=== PATIENT | female | born 1935 | race Caucasian/White ===

== ENCOUNTER 2020-01-31 16:51 | Inpatient (IN) | payer MEDICARE, OTHER ==
[~2020-01-31] VITALS: Ht 154.9 cm; Wt 71.4 kg
[2020-01-31] MEDS ORDERED: ONDANSETRON HCL INJ 2MG/ML 2ML 2 MG/ML VIAL IV PRN ×2 (17:00→21:00)
[2020-01-31 18:40] LABS: BASOPHILS # (AUTO) 0.2 (0.0-0.1); BASOPHILS % 0.8 % (0.0-1.0); EOSINOPHILS # (AUTO) 0.7 (0.0-0.4); EOSINOPHILS % 2.9 % (0.0-6.0); HEMATOCRIT 34.8 % (34.2-44.1); HEMOGLOBIN 10.9 g/dL (12.0-16.0); LYMPHOCYTES # (AUTO) 1.8 (1.0-3.2); LYMPHOCYTES % 7.7 % (18.0-39.1); MEAN CORPUSCULAR HEMOGLOBIN 28.4 pg (28-32); MEAN CORPUSCULAR HGB CONC 31.3 g/dL (31-35); MEAN CORPUSCULAR VOLUME 90.6 fL (81-99); MONOCYTES # (AUTO) 1.5 (0.2-0.8); MONOCYTES % 6.5 % (4.4-11.3); NEUTROPHILS # (AUTO) 18.1 (2.1-6.9); NEUTROPHILS % 76.9 % (38.7-80.0); PLATELET COUNT 417 x10e3/uL (140-360); RED BLOOD COUNT 3.84 x10e6/uL (3.6-5.1); RED CELL DISTRIBUTION WIDTH 17.5 % (11.7-14.4)
[2020-01-31 18:52] LABS: CLARITY,URINE SL CLOUDY (CLEAR); COLOR,URINE YELLOW (YELLOW); KETONES,URINE TRACE (NEGATIVE); LEUKOCYTE ESTERASE ,URINE SMALL (NEGATIVE); NITRITE,URINE NEGATIVE (NEGATIVE); PROTEIN,URINE DIPSTICK >=300 (NEGATIVE); URINE UROBILINOGEN 0.2 mg/dL (0.2 - 1)
[2020-01-31 18:53] LABS: BILIRUBIN,URINE NEGATIVE (NEGATIVE)
[2020-01-31 18:56] LABS: ALBUMIN 3.4 g/dL (3.5-5.0); ALBUMIN/GLOBULIN RATIO 0.9 (0.8-2.0); ANION GAP 20.1 mmol/L (8-16); CREATININE, SERUM 1.76 mg/dL (0.57-1.11); POTASSIUM 4.1 mmol/L (3.5-5.1)
[2020-01-31] MEDS ORDERED: SODIUM CHLORIDE 0.9% 1000ML 1,000 ML IV ONE ×2 (19:00→20:45)
[2020-01-31] MEDS ORDERED: CEFEPIME HCL 1 GM VIAL IV ONE (19:00)
[2020-01-31] MEDS ORDERED: CEFEPIME 1GM/NS 0.9% 50 ML 50 ML IV ONE ×2 (19:07→19:15)
[2020-01-31 19:08] LABS: RBC,URINE >50 /HPF (0-5); WBC,URINE (MAN) 21-50 /HPF (0-5)
[2020-01-31 19:09] LABS: BACTERIA,URINE MANY /HPF; EPITHELIAL CELLS,URINE FEW /LPF; YEAST,URINE MODERATE
[2020-01-31 19:41] LABS: BAND NEUTROPHILS % (MANUAL) 8 %; EOSINOPHILS % (MANUAL) 4 % (0-7); LYMPHOCYTES % (MANUAL) 7 % (19-48); MONOCYTES % (MANUAL) 5 % (3.4-9.0); MYELOCYTES % (MANUAL) 1 % (0-0); NEUTROPHILS % (MANUAL) 75 % (40-74)
[2020-01-31 19:44] LABS: ELLIPTOCYTE, RBC SLIGHT; POLYCHROMASIA FEW; RBC MORPHOLOGY COMMENT ABNORMAL; SCHISTOCYTES RARE
[2020-01-31 19:45] LABS: PLATELET ESTIMATE ADEQUATE; PLATELET MORPHOLOGY COMMENT NORMAL
[2020-01-31] MEDS: MEROPENEM 500MG/ NS 50ML 50 ML IV SCH (20:26)
[2020-01-31] MEDS ORDERED: SODIUM CHLORIDE 0.9% 1000ML 1,000 ML ONE (20:41)
[2020-01-31] MEDS: SODIUM CHLORIDE 0.9% 1000ML 1,000 ML IV SCH (23:00)
[2020-01-31 23:11] VITALS: BP 125/85
[2020-01-31 23:45] VITALS: BP 125/85
[2020-02-01] VITALS (24 sets, daily range): BP systolic 102–149; BP diastolic 39–65
[2020-02-01 05:04] LABS: BASOPHILS # (AUTO) 0.1 (0.0-0.1); BASOPHILS % 0.7 % (0.0-1.0); EOSINOPHILS # (AUTO) 0.6 (0.0-0.4); EOSINOPHILS % 3.1 % (0.0-6.0); HEMOGLOBIN 9.2 g/dL (12.0-16.0); LYMPHOCYTES # (AUTO) 1.4 (1.0-3.2); LYMPHOCYTES % 7.2 % (18.0-39.1); MEAN CORPUSCULAR HEMOGLOBIN 28.8 pg (28-32); MEAN CORPUSCULAR HGB CONC 30.7 g/dL (31-35); MEAN CORPUSCULAR VOLUME 93.8 fL (81-99); MONOCYTES # (AUTO) 1.5 (0.2-0.8); MONOCYTES % 7.9 % (4.4-11.3); NEUTROPHILS # (AUTO) 14.4 (2.1-6.9); NEUTROPHILS % 76.6 % (38.7-80.0); PLATELET COUNT 345 x10e3/uL (140-360); RED CELL DISTRIBUTION WIDTH 17.3 % (11.7-14.4)
[2020-02-01 05:20] LABS: ALBUMIN 2.9 g/dL (3.5-5.0); ANION GAP 20.7 mmol/L (8-16); CALCIUM 9.2 mg/dL (8.4-10.2); CREATININE, SERUM 1.62 mg/dL (0.57-1.11); POTASSIUM 3.7 mmol/L (3.5-5.1)
[2020-02-01] MEDS: SODIUM CHLORIDE 0.9% 1000ML 1,000 ML IV SCH (07:24)
[2020-02-01] MEDS: MEROPENEM 500MG/ NS 50ML 50 ML IV SCH ×2 (07:24→21:51)
[2020-02-01] MEDS ORDERED: LEVETIRACETAM ORAL SOLUTION 500 MG/5 ML SOLN PEG SCH (09:00)
[2020-02-01] MEDS ORDERED: CITRATE OF MAGNESIA 300ML BOTTLE GT ONE (10:30)
[2020-02-01] MEDS ORDERED: MINERAL OIL 132 ML BTL PR ONE (10:30)
[2020-02-01] MEDS ORDERED: HEPARIN SOD (PORCINE) 5,000 UNIT/ML VIAL SC SCH (10:30)
[2020-02-01] MEDS: DOCUSATE SODIUM LIQD 100 MG/10 ML UDC NG SCH ×2 (10:30→16:44)
[2020-02-01 10:56] LABS: INR 1.15; PROTHROMBIN TIME 15.3 seconds (11.9-14.5)
[2020-02-01 10:57] LABS: PARTIAL THROMBOPLASTIN TIME 36.2 seconds (23.8-35.5)
[2020-02-01] MEDS: ALBUTEROL/IPRATROPIUM 3 ML NEB NEB SCH ×2 (11:00→18:40)
[2020-02-01 11:16] LABS: ABG HCO3 18 mmol/L (22-26); ABG PCO2 35 mmHg (35-45); ABG PH 7.32 (7.35-7.45); ABG PO2 97 mmHg (80-105); ABG TCO2 19
[2020-02-01] MEDS ORDERED: MIDAZOLAM HCL 2 MG/2 ML VIAL ONE (11:21)
[2020-02-01] MEDS ORDERED: FENTANYL CITRATE/PF 100MCG/2 ML INJ ONE (11:22)
[2020-02-01] MEDS ORDERED: LIDOCAINE HCL 1% LOCAL INJ 20 ML VIAL ONE (11:23)
[2020-02-01] MEDS ORDERED: SODIUM CHLORIDE 0.9% 250ML 250 ML ONE (11:23)
[2020-02-01] MEDS ORDERED: IOPAMIDOL 300 MG/ML 15ML VIAL IT ONE (11:42)
[2020-02-01] MEDS: LACTATED RINGER'S 1,000 ML INJ SCH ×2 (13:13→21:52)
[2020-02-01] MEDS ORDERED: AMANTADINE50 MG/5 ML (13:17)
[2020-02-01] MEDS ORDERED: VALPROIC A250 MG/5 M PO (13:17)
[2020-02-01] MEDS ORDERED: PHENOBARBITAL64.8 MG NG (13:17)
[2020-02-01] MEDS ORDERED: PHENYTOIN100 MG/4 M (13:17)
[2020-02-01] MEDS ORDERED: ATORVASTATIN CA20 MG PO (13:17)
[2020-02-01] MEDS ORDERED: PHENOBARBITAL 64.8 MG NG SCH (14:00)
[2020-02-01] MEDS: PHENOBARBITAL 30 MG TAB NG SCH ×2 (15:48→21:51)
[2020-02-01] MEDS: LEVETIRACETAM ORAL SOLUTION 500 MG/5 ML SOLN PEG SCH (16:45)
[2020-02-01] MEDS ORDERED: VANCOMYCIN 750MG/NS 150ML IVPB 150 ML IV SCH (17:00)
[2020-02-01] MEDS: ATORVASTATIN 40 MG TAB PO SCH (21:51)
[2020-02-02] VITALS (25 sets, daily range): BP systolic 112–141; BP diastolic 46–69
[2020-02-02] MEDS: LACTATED RINGER'S 1,000 ML INJ SCH (02:30)
[2020-02-02 05:15] LABS: BASOPHILS # (AUTO) 0.1 (0.0-0.1); BASOPHILS % 0.7 % (0.0-1.0); EOSINOPHILS # (AUTO) 0.5 (0.0-0.4); EOSINOPHILS % 3.6 % (0.0-6.0); HEMATOCRIT 24.7 % (34.2-44.1); LYMPHOCYTES # (AUTO) 1.5 (1.0-3.2); MEAN CORPUSCULAR HEMOGLOBIN 28.3 pg (28-32); MEAN CORPUSCULAR HGB CONC 30.4 g/dL (31-35); MEAN CORPUSCULAR VOLUME 93.2 fL (81-99); MONOCYTES # (AUTO) 1.4 (0.2-0.8); MONOCYTES % 9.5 % (4.4-11.3); NEUTROPHILS # (AUTO) 10.3 (2.1-6.9); NEUTROPHILS % 70.5 % (38.7-80.0); PLATELET COUNT 303 x10e3/uL (140-360); RED BLOOD COUNT 2.65 x10e6/uL (3.6-5.1); RED CELL DISTRIBUTION WIDTH 17.5 % (11.7-14.4)
[2020-02-02 05:24] LABS: HEMOGLOBIN 7.5 g/dL (12.0-16.0)
[2020-02-02 05:26] LABS: INR 1.06; PROTHROMBIN TIME 14.3 seconds (11.9-14.5)
[2020-02-02 05:35] LABS: ALBUMIN 2.7 g/dL (3.5-5.0); ALBUMIN/GLOBULIN RATIO 1.1 (0.8-2.0); ANION GAP 17.9 mmol/L (8-16); CREATININE, SERUM 1.59 mg/dL (0.57-1.11); POTASSIUM 3.9 mmol/L (3.5-5.1)
[2020-02-02] MEDS: PHENOBARBITAL 30 MG TAB NG SCH ×3 (06:00→21:58)
[2020-02-02] MEDS: ALBUTEROL/IPRATROPIUM 3 ML NEB NEB SCH ×4 (07:00→19:00)
[2020-02-02] MEDS: LEVETIRACETAM ORAL SOLUTION 500 MG/5 ML SOLN PEG SCH ×2 (08:26→16:41)
[2020-02-02] MEDS: PANTOPRAZOLE SODIUM 40 MG SUSPDR.PKT PO SCH (08:26)
[2020-02-02] MEDS: COLLAGENASE 5 GM TUBE TP SCH (08:26)
[2020-02-02] MEDS: DOCUSATE SODIUM LIQD 100 MG/10 ML UDC NG SCH ×2 (08:26→16:41)
[2020-02-02] MEDS: MEROPENEM 500MG/ NS 50ML 50 ML IV SCH ×2 (08:26→20:53)
[2020-02-02] MEDS: AMANTADINE HCL 50 MG/5 ML SOLUTION NG SCH (09:00)
[2020-02-02] MEDS ORDERED: DAPTOMYCIN 500mg 10ML 400 MG in SODIUM CHLORIDE 0.9% 100 ML IV SCH (13:00)
[2020-02-02] MEDS: ATORVASTATIN 40 MG TAB PO SCH (21:01)
[2020-02-03] VITALS (25 sets, daily range): BP systolic 112–138; BP diastolic 46–70
[2020-02-03] MEDS: ALBUTEROL/IPRATROPIUM 3 ML NEB NEB SCH ×4 (01:00→19:00)
[2020-02-03] MEDS: COLLAGENASE 5 GM TUBE TP SCH (01:39)
[2020-02-03] MEDS: LACTATED RINGER'S 1,000 ML INJ SCH (04:09)
[2020-02-03 05:11] LABS: BASOPHILS # (AUTO) 0.1 (0.0-0.1); BASOPHILS % 0.4 % (0.0-1.0); EOSINOPHILS # (AUTO) 0.4 (0.0-0.4); EOSINOPHILS % 3.2 % (0.0-6.0); HEMOGLOBIN 7.9 g/dL (12.0-16.0); LYMPHOCYTES # (AUTO) 1.2 (1.0-3.2); LYMPHOCYTES % 8.7 % (18.0-39.1); MEAN CORPUSCULAR HEMOGLOBIN 28.6 pg (28-32); MEAN CORPUSCULAR HGB CONC 30.4 g/dL (31-35); MEAN CORPUSCULAR VOLUME 94.2 fL (81-99); MONOCYTES # (AUTO) 1.1 (0.2-0.8); MONOCYTES % 7.8 % (4.4-11.3); NEUTROPHILS # (AUTO) 10.3 (2.1-6.9); NEUTROPHILS % 75.2 % (38.7-80.0); PLATELET COUNT 303 x10e3/uL (140-360); RED BLOOD COUNT 2.76 x10e6/uL (3.6-5.1); RED CELL DISTRIBUTION WIDTH 17.8 % (11.7-14.4)
[2020-02-03 05:33] LABS: ALBUMIN 2.7 g/dL (3.5-5.0); ALBUMIN/GLOBULIN RATIO 1.1 (0.8-2.0); ANION GAP 15.3 mmol/L (8-16); CREATININE, SERUM 1.37 mg/dL (0.57-1.11); POTASSIUM 3.3 mmol/L (3.5-5.1)
[2020-02-03 05:52] LABS: % IRON SATURATION 25 % (15-50); IRON 54 ug/dL (50-170); TOTAL IRON BINDING CAPACITY 213 ug/dL (261-478); TRANSFERRIN 152 mg/dL (180-382)
[2020-02-03] MEDS: PHENOBARBITAL 30 MG TAB NG SCH ×3 (06:20→20:40)
[2020-02-03] MEDS: PANTOPRAZOLE SODIUM 40 MG SUSPDR.PKT PO SCH (08:34)
[2020-02-03] MEDS: MEROPENEM 500MG/ NS 50ML 50 ML IV SCH (08:34)
[2020-02-03] MEDS: LEVETIRACETAM ORAL SOLUTION 500 MG/5 ML SOLN PEG SCH ×2 (08:54→17:00)
[2020-02-03] MEDS: DOCUSATE SODIUM LIQD 100 MG/10 ML UDC NG SCH ×2 (08:54→17:00)
[2020-02-03] MEDS: AMANTADINE HCL 50 MG/5 ML SOLUTION NG SCH (08:54)
[2020-02-03] MEDS ORDERED: POTASSIUM BICARBONATE/CIT AC 20 MEQ TABLET.EFF PO PRN (11:30)
[2020-02-03] MEDS: DEXTROSE 5%/0.9% SOD CHL 1,000 ML IV SCH (12:08)
[2020-02-03] MEDS: LINEZOLID 600 MG/D5W 300ML 300 ML IV SCH (13:44)
[2020-02-03] MEDS: ATORVASTATIN 40 MG TAB PO SCH (20:40)
[2020-02-04] VITALS (24 sets, daily range): BP systolic 107–171; BP diastolic 41–84
[2020-02-04] MEDS: ALBUTEROL/IPRATROPIUM 3 ML NEB NEB SCH ×4 (01:00→19:00)
[2020-02-04] MEDS: LINEZOLID 600 MG/D5W 300ML 300 ML IV SCH ×2 (02:41→11:47)
[2020-02-04 05:39] LABS: BASOPHILS # (AUTO) 0.1 (0.0-0.1); BASOPHILS % 0.4 % (0.0-1.0); EOSINOPHILS # (AUTO) 0.8 (0.0-0.4); EOSINOPHILS % 2.7 % (0.0-6.0); HEMATOCRIT 29.7 % (34.2-44.1); LYMPHOCYTES % 7.1 % (18.0-39.1); MEAN CORPUSCULAR HEMOGLOBIN 28.5 pg (28-32); MEAN CORPUSCULAR HGB CONC 30.3 g/dL (31-35); MONOCYTES # (AUTO) 1.5 (0.2-0.8); MONOCYTES % 5.1 % (4.4-11.3); NEUTROPHILS # (AUTO) 23.7 (2.1-6.9); NEUTROPHILS % 82.7 % (38.7-80.0); PLATELET COUNT 317 x10e3/uL (140-360); RED BLOOD COUNT 3.16 x10e6/uL (3.6-5.1); RED CELL DISTRIBUTION WIDTH 17.8 % (11.7-14.4)
[2020-02-04] MEDS: PHENOBARBITAL 30 MG TAB NG SCH ×3 (05:53→22:00)
[2020-02-04 06:02] LABS: ALBUMIN 1.7 g/dL (3.5-5.0); ALBUMIN/GLOBULIN RATIO 0.5 (0.8-2.0); CALCIUM 8.7 mg/dL (8.4-10.2); CREATININE, SERUM 1.42 mg/dL (0.57-1.11)
[2020-02-04] MEDS: PANTOPRAZOLE SODIUM 40 MG SUSPDR.PKT PO SCH (07:30)
[2020-02-04 08:10] LABS: ANISOCYTOSIS SLIGHT; EOSINOPHILS % (MANUAL) 4 % (0-7); LYMPHOCYTES % (MANUAL) 6 % (19-48); MONOCYTES % (MANUAL) 2 % (3.4-9.0); NEUTROPHILS % (MANUAL) 88 % (40-74); PLATELET ESTIMATE ADEQUATE; RBC MORPHOLOGY COMMENT ABNORMAL
[2020-02-04 08:11] LABS: PLATELET MORPHOLOGY COMMENT NORMAL
[2020-02-04] MEDS: DEXTROSE 5%/0.9% SOD CHL 1,000 ML IV SCH (08:32)
[2020-02-04] MEDS: AMANTADINE HCL 50 MG/5 ML SOLUTION NG SCH (09:00)
[2020-02-04] MEDS: LEVETIRACETAM ORAL SOLUTION 500 MG/5 ML SOLN PEG SCH ×2 (09:00→17:00)
[2020-02-04] MEDS: DOCUSATE SODIUM LIQD 100 MG/10 ML UDC NG SCH ×2 (09:00→17:00)
[2020-02-04] MEDS: COLLAGENASE 5 GM TUBE TP SCH (09:18)
[2020-02-04] MEDS: ACETAMINOPHEN 650 MG SUPP PR PRN ×2 (11:47→23:43)
[2020-02-04] MEDS ORDERED: POTASSIUM CHLORIDE 20MEQ/100ML 200 ML IV ONE (12:00)
[2020-02-04 14:30] LABS: AMYLASE 24 U/L (25-125); LIPASE 44 U/L (8-78)
[2020-02-04] MEDS ORDERED: CEFEPIME 1GM/NS 0.9% 50 ML 50 ML IV SCH (15:00)
[2020-02-04] MEDS: METRONIDAZOLE 500MG/NS 100ML 100 ML IV SCH ×2 (15:05→22:21)
[2020-02-04] MEDS: ATORVASTATIN 40 MG TAB PO SCH (21:00)
[2020-02-05] VITALS (24 sets, daily range): BP systolic 116–166; BP diastolic 47–73
[2020-02-05] MEDS: ALBUTEROL/IPRATROPIUM 3 ML NEB NEB SCH ×4 (01:00→18:10)
[2020-02-05] MEDS: LINEZOLID 600 MG/D5W 300ML 300 ML IV SCH ×2 (01:00→13:06)
[2020-02-05] MEDS: DEXTROSE 5%/0.9% SOD CHL 1,000 ML IV SCH (03:45)
[2020-02-05 05:33] LABS: BASOPHILS # (AUTO) 0.1 (0.0-0.1); BASOPHILS % 0.3 % (0.0-1.0); EOSINOPHILS # (AUTO) 0.9 (0.0-0.4); EOSINOPHILS % 4.4 % (0.0-6.0); HEMATOCRIT 24.4 % (34.2-44.1); HEMOGLOBIN 7.3 g/dL (12.0-16.0); LYMPHOCYTES # (AUTO) 1.8 (1.0-3.2); MEAN CORPUSCULAR HEMOGLOBIN 28.5 pg (28-32); MEAN CORPUSCULAR HGB CONC 29.9 g/dL (31-35); MEAN CORPUSCULAR VOLUME 95.3 fL (81-99); MONOCYTES # (AUTO) 1.2 (0.2-0.8); MONOCYTES % 5.8 % (4.4-11.3); NEUTROPHILS # (AUTO) 16.1 (2.1-6.9); NEUTROPHILS % 78.6 % (38.7-80.0); PLATELET COUNT 261 x10e3/uL (140-360); RED BLOOD COUNT 2.56 x10e6/uL (3.6-5.1); RED CELL DISTRIBUTION WIDTH 17.8 % (11.7-14.4)
[2020-02-05] MEDS: METRONIDAZOLE 500MG/NS 100ML 100 ML IV SCH (05:35)
[2020-02-05] MEDS: PHENOBARBITAL 30 MG TAB NG SCH ×2 (05:35→13:06)
[2020-02-05 05:47] LABS: ALBUMIN 1.5 g/dL (3.5-5.0); ALBUMIN/GLOBULIN RATIO 0.5 (0.8-2.0); ANION GAP 11.1 mmol/L (8-16); CALCIUM 7.6 mg/dL (8.4-10.2); CREATININE, SERUM 1.2 mg/dL (0.57-1.11); POTASSIUM 3.1 mmol/L (3.5-5.1)
[2020-02-05] MEDS: PANTOPRAZOLE SODIUM 40 MG SUSPDR.PKT PO SCH (07:30)
[2020-02-05] MEDS: COLLAGENASE 5 GM TUBE TP SCH (08:22)
[2020-02-05] MEDS: LEVETIRACETAM ORAL SOLUTION 500 MG/5 ML SOLN PEG SCH ×2 (08:22→16:27)
[2020-02-05] MEDS: AMANTADINE HCL 50 MG/5 ML SOLUTION NG SCH (08:22)
[2020-02-05] MEDS: DOCUSATE SODIUM LIQD 100 MG/10 ML UDC NG SCH ×2 (08:22→16:26)
[2020-02-05] MEDS ORDERED: MAGNESIUM HYDROXIDE 30 ML UDC PO PRN (10:30)
[2020-02-05] MEDS ORDERED: CITRATE OF MAGNESIA 300ML BOTTLE PO ONE (10:30)
[2020-02-05] MEDS ORDERED: POTASSIUM CHLORIDE 20MEQ/100ML 200 ML IV ONE (11:00)
[2020-02-05] MEDS ORDERED: DEXTROSE 50% SYRINGE 50 ML IV PRN (11:00)
[2020-02-05] MEDS: INSULIN LISPRO 100 UNIT/1 ML 3ML VIAL SQ SCH ×2 (11:54→18:00)
[2020-02-05] MEDS: MEROPENEM 1GM 100 ML IV SCH ×2 (13:06→22:09)
[2020-02-05] MEDS: TOBRAMYCIN 40 MG/ML 2ML VIAL INH SCH ×2 (14:00→18:25)
[2020-02-06] VITALS (28 sets, daily range): BP systolic 99–147; BP diastolic 48–88
[2020-02-06] MEDS: DEXTROSE 5%/0.9% SOD CHL 1,000 ML IV SCH ×2 (00:19→20:08)
[2020-02-06] MEDS: LINEZOLID 600 MG/D5W 300ML 300 ML IV SCH ×2 (00:20→13:17)
[2020-02-06] MEDS: ALBUTEROL/IPRATROPIUM 3 ML NEB NEB SCH ×5 (00:45→23:30)
[2020-02-06] MEDS: MEROPENEM 1GM 100 ML IV SCH ×3 (05:32→21:04)
[2020-02-06 06:00] LABS: BASOPHILS # (AUTO) 0.1 (0.0-0.1); BASOPHILS % 0.4 % (0.0-1.0); EOSINOPHILS # (AUTO) 0.9 (0.0-0.4); EOSINOPHILS % 5.2 % (0.0-6.0); HEMATOCRIT 25.6 % (34.2-44.1); HEMOGLOBIN 7.7 g/dL (12.0-16.0); LYMPHOCYTES # (AUTO) 1.4 (1.0-3.2); LYMPHOCYTES % 8.3 % (18.0-39.1); MEAN CORPUSCULAR HEMOGLOBIN 28.9 pg (28-32); MEAN CORPUSCULAR HGB CONC 30.1 g/dL (31-35); MEAN CORPUSCULAR VOLUME 96.2 fL (81-99); MONOCYTES % 5.9 % (4.4-11.3); NEUTROPHILS # (AUTO) 13.2 (2.1-6.9); NEUTROPHILS % 77.6 % (38.7-80.0); PLATELET COUNT 255 x10e3/uL (140-360); RED BLOOD COUNT 2.66 x10e6/uL (3.6-5.1); RED CELL DISTRIBUTION WIDTH 18.2 % (11.7-14.4)
[2020-02-06 06:26] LABS: ALBUMIN 1.6 g/dL (3.5-5.0); ALBUMIN/GLOBULIN RATIO 0.5 (0.8-2.0); ANION GAP 10.1 mmol/L (8-16); CALCIUM 7.7 mg/dL (8.4-10.2); CREATININE, SERUM 1.07 mg/dL (0.57-1.11); POTASSIUM 3.1 mmol/L (3.5-5.1)
[2020-02-06] MEDS: INSULIN LISPRO 100 UNIT/1 ML 3ML VIAL SQ SCH ×4 (06:50→17:32)
[2020-02-06] MEDS: TOBRAMYCIN 40 MG/ML 2ML VIAL INH SCH ×2 (07:00→18:55)
[2020-02-06] MEDS ORDERED: POTASSIUM CHLORIDE 20MEQ/100ML 100 ML IV ONE (09:00)
[2020-02-06] MEDS: PANTOPRAZOLE 40 MG 10ML VIAL IV SCH (09:53)
[2020-02-06] MEDS: LEVETIRACETAM 500MG/5ML VIAL 250 MG in SODIUM CHLORIDE 0.9% 100 ML 100 ML IV SCH ×2 (09:53→17:31)
[2020-02-06] MEDS: COLLAGENASE 5 GM TUBE TP SCH (11:34)
[2020-02-06] MEDS: ACETAMINOPHEN 650 MG SUPP PR PRN (23:15)
[2020-02-07] VITALS (24 sets, daily range): BP systolic 133–173; BP diastolic 51–117
[2020-02-07] MEDS: LINEZOLID 600 MG/D5W 300ML 300 ML IV SCH ×2 (01:00→12:30)
[2020-02-07] MEDS: MEROPENEM 1GM 100 ML IV SCH ×3 (05:30→22:30)
[2020-02-07] MEDS: INSULIN LISPRO 100 UNIT/1 ML 3ML VIAL SQ SCH ×5 (05:32→23:57)
[2020-02-07 06:14] LABS: BASOPHILS # (AUTO) 0.1 (0.0-0.1); BASOPHILS % 0.4 % (0.0-1.0); EOSINOPHILS # (AUTO) 0.8 (0.0-0.4); EOSINOPHILS % 5.9 % (0.0-6.0); HEMATOCRIT 25.1 % (34.2-44.1); HEMOGLOBIN 7.7 g/dL (12.0-16.0); LYMPHOCYTES # (AUTO) 1.4 (1.0-3.2); LYMPHOCYTES % 10.6 % (18.0-39.1); MEAN CORPUSCULAR HEMOGLOBIN 30.2 pg (28-32); MEAN CORPUSCULAR HGB CONC 30.7 g/dL (31-35); MEAN CORPUSCULAR VOLUME 98.4 fL (81-99); MONOCYTES # (AUTO) 0.9 (0.2-0.8); MONOCYTES % 6.4 % (4.4-11.3); NEUTROPHILS # (AUTO) 10.1 (2.1-6.9); NEUTROPHILS % 74.5 % (38.7-80.0); PLATELET COUNT 203 x10e3/uL (140-360); RED BLOOD COUNT 2.55 x10e6/uL (3.6-5.1); RED CELL DISTRIBUTION WIDTH 18.4 % (11.7-14.4)
[2020-02-07 08:18] LABS: ANION GAP 11.4 mmol/L (8-16); CREATININE, SERUM 0.93 mg/dL (0.57-1.11); POTASSIUM 3.4 mmol/L (3.5-5.1)
[2020-02-07] MEDS: TOBRAMYCIN 40 MG/ML 2ML VIAL INH SCH ×2 (08:31→18:30)
[2020-02-07] MEDS: LEVETIRACETAM 500MG/5ML VIAL 250 MG in SODIUM CHLORIDE 0.9% 100 ML 100 ML IV SCH ×2 (08:31→21:15)
[2020-02-07] MEDS: ALBUTEROL/IPRATROPIUM 3 ML NEB NEB SCH ×3 (08:31→18:15)
[2020-02-07 08:40] LABS: MAGNESIUM 2.2 MG/DL (1.3-2.1); PHOSPHORUS 2.7 MG/DL (2.3-4.7)
[2020-02-07] MEDS: COLLAGENASE 5 GM TUBE TP SCH (09:03)
[2020-02-07] MEDS: PANTOPRAZOLE 40 MG 10ML VIAL IV SCH (09:03)
[2020-02-07] MEDS: DOCUSATE SODIUM LIQD 100 MG/10 ML UDC NG SCH (17:00)
[2020-02-07] MEDS: ACETAMINOPHEN 650 MG SUPP PR PRN (20:56)
[2020-02-07] MEDS: ATORVASTATIN 40 MG TAB PO SCH (21:15)
[2020-02-07] MEDS: PHENOBARBITAL 30 MG TAB NG SCH (21:15)
[2020-02-07] MEDS: LACTATED RINGER'S 1,000 ML INJ SCH (21:15)
[2020-02-08] VITALS (25 sets, daily range): BP systolic 124–163; BP diastolic 43–73
[2020-02-08] MEDS: LINEZOLID 600 MG/D5W 300ML 300 ML IV SCH ×2 (00:57→12:21)
[2020-02-08] MEDS: ALBUTEROL/IPRATROPIUM 3 ML NEB NEB SCH ×4 (01:00→18:55)
[2020-02-08 04:53] LABS: BASOPHILS % 0.3 % (0.0-1.0); EOSINOPHILS # (AUTO) 1.3 (0.0-0.4); EOSINOPHILS % 9.1 % (0.0-6.0); HEMATOCRIT 24.9 % (34.2-44.1); HEMOGLOBIN 7.7 g/dL (12.0-16.0); LYMPHOCYTES # (AUTO) 1.3 (1.0-3.2); LYMPHOCYTES % 8.9 % (18.0-39.1); MEAN CORPUSCULAR HEMOGLOBIN 30.7 pg (28-32); MEAN CORPUSCULAR HGB CONC 30.9 g/dL (31-35); MEAN CORPUSCULAR VOLUME 99.2 fL (81-99); MONOCYTES # (AUTO) 0.9 (0.2-0.8); NEUTROPHILS # (AUTO) 10.5 (2.1-6.9); NEUTROPHILS % 73.9 % (38.7-80.0); PLATELET COUNT 290 x10e3/uL (140-360); RED BLOOD COUNT 2.51 x10e6/uL (3.6-5.1); RED CELL DISTRIBUTION WIDTH 18.6 % (11.7-14.4)
[2020-02-08 05:01] LABS: INR 1.06; PROTHROMBIN TIME 14.3 seconds (11.9-14.5)
[2020-02-08 05:02] LABS: PARTIAL THROMBOPLASTIN TIME 35.7 seconds (23.8-35.5)
[2020-02-08 05:08] LABS: ANION GAP 12.4 mmol/L (8-16); BLOOD UREA NITROGEN 27 mg/dL (7-26); BUN/CREATININE RATIO 32 (6-25); CALCIUM 8.1 mg/dL (8.4-10.2); CARBON DIOXIDE 21 mmol/L (22-29); CHLORIDE 114 mmol/L (98-107); CREATININE, SERUM 0.84 mg/dL (0.57-1.11); EST GLOMERULAR FILTRATION RATE > 60 ML/MIN (60-); GLUCOSE 140 mg/dL (74-118); POTASSIUM 3.4 mmol/L (3.5-5.1); SODIUM 144 mmol/L (136-145)
[2020-02-08] MEDS: MEROPENEM 1GM 100 ML IV SCH ×2 (06:21→14:51)
[2020-02-08] MEDS: PHENOBARBITAL 30 MG TAB NG SCH (06:21)
[2020-02-08] MEDS: INSULIN LISPRO 100 UNIT/1 ML 3ML VIAL SQ SCH ×4 (06:22→23:59)
[2020-02-08] MEDS: TOBRAMYCIN 40 MG/ML 2ML VIAL INH SCH ×2 (07:00→18:55)
[2020-02-08] MEDS: LEVETIRACETAM 500MG/5ML VIAL 250 MG in SODIUM CHLORIDE 0.9% 100 ML 100 ML IV SCH ×2 (08:30→20:46)
[2020-02-08] MEDS: PANTOPRAZOLE 40 MG 10ML VIAL IV SCH (08:30)
[2020-02-08] MEDS: DOCUSATE SODIUM LIQD 100 MG/10 ML UDC NG SCH ×2 (08:31→14:51)
[2020-02-08] MEDS: COLLAGENASE 5 GM TUBE TP SCH (09:07)
[2020-02-08] MEDS: AMANTADINE HCL 50 MG/5 ML SOLUTION NG SCH (09:07)
[2020-02-08] MEDS: LACTATED RINGER'S 1,000 ML INJ SCH ×2 (13:34→23:10)
[2020-02-08] MEDS: ATORVASTATIN 40 MG TAB PO SCH (20:46)
[2020-02-09] VITALS (25 sets, daily range): BP systolic 116–145; BP diastolic 44–80
[2020-02-09] MEDS: LINEZOLID 600 MG/D5W 300ML 300 ML IV SCH ×2 (02:31→13:08)
[2020-02-09] MEDS: ALBUTEROL/IPRATROPIUM 3 ML NEB NEB SCH ×4 (03:20→19:20)
[2020-02-09 04:52] LABS: BASOPHILS % 0.4 % (0.0-1.0); EOSINOPHILS # (AUTO) 1.2 (0.0-0.4); HEMATOCRIT 23.4 % (34.2-44.1); HEMOGLOBIN 7.1 g/dL (12.0-16.0); LYMPHOCYTES # (AUTO) 1.2 (1.0-3.2); LYMPHOCYTES % 15.3 % (18.0-39.1); MEAN CORPUSCULAR HEMOGLOBIN 29.6 pg (28-32); MEAN CORPUSCULAR HGB CONC 30.3 g/dL (31-35); MEAN CORPUSCULAR VOLUME 97.5 fL (81-99); MONOCYTES # (AUTO) 0.6 (0.2-0.8); MONOCYTES % 7.8 % (4.4-11.3); NEUTROPHILS # (AUTO) 4.7 (2.1-6.9); NEUTROPHILS % 59.7 % (38.7-80.0); PLATELET COUNT 263 x10e3/uL (140-360)
[2020-02-09 05:15] LABS: ALANINE AMINOTRANSFERASE 23 IU/L (0-55); ALBUMIN 1.4 g/dL (3.5-5.0); ALKALINE PHOSPHATASE 98 IU/L (40-150); ANION GAP 11.5 mmol/L (8-16); BILIRUBIN,DIRECT 0.2 mg/dL (0.0-0.5); BLOOD UREA NITROGEN 23 mg/dL (7-26); BUN/CREATININE RATIO 30 (6-25); CALCIUM 7.7 mg/dL (8.4-10.2); CARBON DIOXIDE 21 mmol/L (22-29); CHLORIDE 112 mmol/L (98-107); CREATININE, SERUM 0.76 mg/dL (0.57-1.11); EST GLOMERULAR FILTRATION RATE > 60 ML/MIN (60-); GLUCOSE 147 mg/dL (74-118); LIPASE 17 U/L (8-78); POTASSIUM 3.5 mmol/L (3.5-5.1); SODIUM 141 mmol/L (136-145)
[2020-02-09] MEDS: INSULIN LISPRO 100 UNIT/1 ML 3ML VIAL SQ SCH ×3 (05:50→17:30)
[2020-02-09] MEDS: DOCUSATE SODIUM LIQD 100 MG/10 ML UDC NG SCH ×2 (07:54→17:00)
[2020-02-09] MEDS: AMANTADINE HCL 50 MG/5 ML SOLUTION NG SCH (08:03)
[2020-02-09] MEDS: LEVETIRACETAM 500MG/5ML VIAL 250 MG in SODIUM CHLORIDE 0.9% 100 ML 100 ML IV SCH ×2 (08:03→22:24)
[2020-02-09] MEDS: PANTOPRAZOLE 40 MG 10ML VIAL IV SCH (08:03)
[2020-02-09] MEDS: COLLAGENASE 5 GM TUBE TP SCH (08:03)
[2020-02-09] MEDS: TOBRAMYCIN 40 MG/ML 2ML VIAL INH SCH ×2 (11:30→19:35)
[2020-02-09] MEDS: ATORVASTATIN 40 MG TAB PO SCH (22:24)
[2020-02-10] VITALS (18 sets, daily range): BP systolic 123–194; BP diastolic 45–102
[2020-02-10] MEDS: LINEZOLID 600 MG/D5W 300ML 300 ML IV SCH ×2 (01:30→13:00)
[2020-02-10] MEDS: ALBUTEROL/IPRATROPIUM 3 ML NEB NEB SCH ×4 (02:15→19:30)
[2020-02-10 04:51] LABS: BASOPHILS % 0.4 % (0.0-1.0); EOSINOPHILS # (AUTO) 1.1 (0.0-0.4); EOSINOPHILS % 15.9 % (0.0-6.0); HEMATOCRIT 23.2 % (34.2-44.1); LYMPHOCYTES # (AUTO) 1.3 (1.0-3.2); LYMPHOCYTES % 17.8 % (18.0-39.1); MEAN CORPUSCULAR HEMOGLOBIN 28.2 pg (28-32); MEAN CORPUSCULAR HGB CONC 30.2 g/dL (31-35); MEAN CORPUSCULAR VOLUME 93.5 fL (81-99); MONOCYTES # (AUTO) 0.5 (0.2-0.8); MONOCYTES % 6.8 % (4.4-11.3); NEUTROPHILS # (AUTO) 4.2 (2.1-6.9); NEUTROPHILS % 58.3 % (38.7-80.0); PLATELET COUNT 285 x10e3/uL (140-360); RED BLOOD COUNT 2.48 x10e6/uL (3.6-5.1); RED CELL DISTRIBUTION WIDTH 17.2 % (11.7-14.4)
[2020-02-10 05:01] LABS: INR 0.98; PARTIAL THROMBOPLASTIN TIME 30.4 seconds (23.8-35.5); PROTHROMBIN TIME 13.5 seconds (11.9-14.5)
[2020-02-10 05:08] LABS: ANION GAP 11.6 mmol/L (8-16); BLOOD UREA NITROGEN 22 mg/dL (7-26); BUN/CREATININE RATIO 31 (6-25); CALCIUM 7.8 mg/dL (8.4-10.2); CARBON DIOXIDE 20 mmol/L (22-29); CHLORIDE 111 mmol/L (98-107); CREATININE, SERUM 0.71 mg/dL (0.57-1.11); EST GLOMERULAR FILTRATION RATE > 60 ML/MIN (60-); GLUCOSE 111 mg/dL (74-118); POTASSIUM 3.6 mmol/L (3.5-5.1); SODIUM 139 mmol/L (136-145)
[2020-02-10] MEDS: INSULIN LISPRO 100 UNIT/1 ML 3ML VIAL SQ SCH ×4 (06:41→17:47)
[2020-02-10] MEDS: DOCUSATE SODIUM LIQD 100 MG/10 ML UDC NG SCH ×2 (07:18→18:41)
[2020-02-10] MEDS: PANTOPRAZOLE 40 MG 10ML VIAL IV SCH (09:25)
[2020-02-10] MEDS: AMANTADINE HCL 50 MG/5 ML SOLUTION NG SCH (09:25)
[2020-02-10] MEDS: LEVETIRACETAM 500MG/5ML VIAL 250 MG in SODIUM CHLORIDE 0.9% 100 ML 100 ML IV SCH ×2 (09:52→21:15)
[2020-02-10] MEDS: COLLAGENASE 5 GM TUBE TP SCH (10:43)
[2020-02-10] MEDS: TOBRAMYCIN 40 MG/ML 2ML VIAL INH SCH ×2 (11:25→19:30)
[2020-02-10] MEDS ORDERED: SODIUM CHLORIDE 0.9% 250ML 250 ML IV ONE (13:00)
[2020-02-10] MEDS: HYDRALAZINE HCL 20 MG/ML VIAL IV PRN ×2 (20:03→23:45)
[2020-02-10] MEDS: ATORVASTATIN 40 MG TAB PO SCH (21:23)
[2020-02-11] VITALS (17 sets, daily range): BP systolic 121–175; BP diastolic 51–69
[2020-02-11] MEDS: ALBUTEROL/IPRATROPIUM 3 ML NEB NEB SCH ×4 (00:05→18:32)
[2020-02-11] MEDS: LINEZOLID 600 MG/D5W 300ML 300 ML IV SCH ×2 (01:12→13:33)
[2020-02-11] MEDS ORDERED: METOPROLOL TARTRATE INJ 1 MG/ML VIAL IV ONE (02:15)
[2020-02-11 04:57] LABS: BASOPHILS % 0.4 % (0.0-1.0); EOSINOPHILS % 9.2 % (0.0-6.0); HEMATOCRIT 30.1 % (34.2-44.1); HEMOGLOBIN 9.5 g/dL (12.0-16.0); LYMPHOCYTES # (AUTO) 1.2 (1.0-3.2); LYMPHOCYTES % 11.2 % (18.0-39.1); MEAN CORPUSCULAR HEMOGLOBIN 28.4 pg (28-32); MEAN CORPUSCULAR HGB CONC 31.6 g/dL (31-35); MEAN CORPUSCULAR VOLUME 90.1 fL (81-99); MONOCYTES # (AUTO) 0.6 (0.2-0.8); MONOCYTES % 5.2 % (4.4-11.3); NEUTROPHILS # (AUTO) 7.8 (2.1-6.9); NEUTROPHILS % 73.4 % (38.7-80.0); PLATELET COUNT 249 x10e3/uL (140-360); RED BLOOD COUNT 3.34 x10e6/uL (3.6-5.1); RED CELL DISTRIBUTION WIDTH 17.1 % (11.7-14.4)
[2020-02-11 05:20] LABS: ANION GAP 14.7 mmol/L (8-16); BLOOD UREA NITROGEN 21 mg/dL (7-26); BUN/CREATININE RATIO 30 (6-25); CALCIUM 7.6 mg/dL (8.4-10.2); CARBON DIOXIDE 19 mmol/L (22-29); CHLORIDE 110 mmol/L (98-107); CREATININE, SERUM 0.69 mg/dL (0.57-1.11); EST GLOMERULAR FILTRATION RATE > 60 ML/MIN (60-); GLUCOSE 131 mg/dL (74-118); POTASSIUM 3.7 mmol/L (3.5-5.1); SODIUM 140 mmol/L (136-145)
[2020-02-11] MEDS: INSULIN LISPRO 100 UNIT/1 ML 3ML VIAL SQ SCH ×4 (06:00→18:00)
[2020-02-11] MEDS: TOBRAMYCIN 40 MG/ML 2ML VIAL INH SCH ×3 (06:55→18:42)
[2020-02-11] MEDS: COLLAGENASE 5 GM TUBE TP SCH (09:00)
[2020-02-11] MEDS: DOCUSATE SODIUM LIQD 100 MG/10 ML UDC NG SCH (09:00)
[2020-02-11] MEDS: LEVETIRACETAM 500MG/5ML VIAL 250 MG in SODIUM CHLORIDE 0.9% 100 ML 100 ML IV SCH ×2 (09:00→21:28)
[2020-02-11] MEDS: AMANTADINE HCL 50 MG/5 ML SOLUTION NG SCH (09:00)
[2020-02-11] MEDS: PANTOPRAZOLE 40 MG 10ML VIAL IV SCH (09:00)
[2020-02-11] MEDS ORDERED: CLONIDINE HCL 0.1 MG/24 HR 1 EA PATCH TOP SCH ×2 (12:30→13:00)
[2020-02-11] MEDS ORDERED: DOCUSATE SODIUM LIQD 100 MG/10 ML UDC NG PRN (13:50)
[2020-02-11] MEDS ORDERED: FUROSEMIDE INJ 10 MG/ML 4 ML VIAL IV ONE (14:30)
[2020-02-11] MEDS: ATORVASTATIN 40 MG TAB PO SCH (21:28)
[2020-02-12] VITALS (24 sets, daily range): BP systolic 113–150; BP diastolic 42–78
[2020-02-12] MEDS: LINEZOLID 600 MG/D5W 300ML 300 ML IV SCH ×2 (01:43→14:16)
[2020-02-12] MEDS: ALBUTEROL/IPRATROPIUM 3 ML NEB NEB SCH ×4 (02:24→18:38)
[2020-02-12 05:53] LABS: BASOPHILS % 0.3 % (0.0-1.0); EOSINOPHILS # (AUTO) 0.9 (0.0-0.4); EOSINOPHILS % 11.6 % (0.0-6.0); HEMATOCRIT 29.1 % (34.2-44.1); HEMOGLOBIN 8.8 g/dL (12.0-16.0); LYMPHOCYTES # (AUTO) 1.1 (1.0-3.2); LYMPHOCYTES % 15.6 % (18.0-39.1); MEAN CORPUSCULAR HEMOGLOBIN 28.3 pg (28-32); MEAN CORPUSCULAR HGB CONC 30.2 g/dL (31-35); MEAN CORPUSCULAR VOLUME 93.6 fL (81-99); MONOCYTES # (AUTO) 0.3 (0.2-0.8); MONOCYTES % 4.1 % (4.4-11.3); PLATELET COUNT 278 x10e3/uL (140-360); RED BLOOD COUNT 3.11 x10e6/uL (3.6-5.1); RED CELL DISTRIBUTION WIDTH 17.2 % (11.7-14.4)
[2020-02-12] MEDS: INSULIN LISPRO 100 UNIT/1 ML 3ML VIAL SQ SCH ×4 (06:00→18:42)
[2020-02-12 06:21] LABS: ANION GAP 13.3 mmol/L (8-16); BLOOD UREA NITROGEN 20 mg/dL (7-26); BUN/CREATININE RATIO 29 (6-25); CALCIUM 7.9 mg/dL (8.4-10.2); CARBON DIOXIDE 20 mmol/L (22-29); CHLORIDE 106 mmol/L (98-107); CREATININE, SERUM 0.69 mg/dL (0.57-1.11); EST GLOMERULAR FILTRATION RATE > 60 ML/MIN (60-); GLUCOSE 140 mg/dL (74-118); POTASSIUM 3.3 mmol/L (3.5-5.1); SODIUM 136 mmol/L (136-145)
[2020-02-12] MEDS: TOBRAMYCIN 40 MG/ML 2ML VIAL INH SCH (06:35)
[2020-02-12 07:31] LABS: PLATELET ESTIMATE SLIGHTLY DECREASED; PLATELET MORPHOLOGY COMMENT NORMAL
[2020-02-12] MEDS: COLLAGENASE 5 GM TUBE TP SCH (08:19)
[2020-02-12] MEDS: LEVETIRACETAM 500MG/5ML VIAL 250 MG in SODIUM CHLORIDE 0.9% 100 ML 100 ML IV SCH ×2 (08:19→20:44)
[2020-02-12] MEDS: PANTOPRAZOLE 40 MG 10ML VIAL IV SCH (08:19)
[2020-02-12] MEDS: AMANTADINE HCL 50 MG/5 ML SOLUTION NG SCH (08:19)
[2020-02-12] MEDS ORDERED: FUROSEMIDE INJ 10 MG/ML 2 ML VIAL IV SCH (09:00)
[2020-02-12] MEDS ORDERED: POTASSIUM CHLORIDE 20MEQ/100ML 100 ML IV STA (12:08)
[2020-02-12] MEDS ORDERED: SODIUM CHLORIDE 0.9% 250ML 250 ML IV ONE (12:45)
[2020-02-12] MEDS: FUROSEMIDE INJ 10 MG/ML 2 ML VIAL IV SCH ×2 (14:16→17:00)
[2020-02-12] MEDS: ATORVASTATIN 40 MG TAB PO SCH (20:44)
[2020-02-13] VITALS (24 sets, daily range): BP systolic 124–197; BP diastolic 55–98
[2020-02-13] MEDS: LINEZOLID 600 MG/D5W 300ML 300 ML IV SCH (01:00)
[2020-02-13] MEDS: ALBUTEROL/IPRATROPIUM 3 ML NEB NEB SCH ×4 (02:41→18:55)
[2020-02-13 05:22] LABS: BASOPHILS % 0.4 % (0.0-1.0); EOSINOPHILS % 12.7 % (0.0-6.0); HEMATOCRIT 31.7 % (34.2-44.1); HEMOGLOBIN 10.3 g/dL (12.0-16.0); LYMPHOCYTES # (AUTO) 1.4 (1.0-3.2); LYMPHOCYTES % 18.6 % (18.0-39.1); MEAN CORPUSCULAR HEMOGLOBIN 28.9 pg (28-32); MEAN CORPUSCULAR HGB CONC 32.5 g/dL (31-35); MONOCYTES # (AUTO) 0.4 (0.2-0.8); MONOCYTES % 4.8 % (4.4-11.3); NEUTROPHILS # (AUTO) 4.8 (2.1-6.9); NEUTROPHILS % 63.2 % (38.7-80.0); PLATELET COUNT 252 x10e3/uL (140-360); RED BLOOD COUNT 3.57 x10e6/uL (3.6-5.1); RED CELL DISTRIBUTION WIDTH 15.9 % (11.7-14.4)
[2020-02-13 05:39] LABS: MEAN CORPUSCULAR VOLUME 88.8 fL (81-99)
[2020-02-13 05:41] LABS: ANION GAP 13.6 mmol/L (8-16); BLOOD UREA NITROGEN 19 mg/dL (7-26); BUN/CREATININE RATIO 28 (6-25); CALCIUM 7.7 mg/dL (8.4-10.2); CARBON DIOXIDE 21 mmol/L (22-29); CHLORIDE 105 mmol/L (98-107); CREATININE, SERUM 0.69 mg/dL (0.57-1.11); EST GLOMERULAR FILTRATION RATE > 60 ML/MIN (60-); GLUCOSE 123 mg/dL (74-118); POTASSIUM 3.6 mmol/L (3.5-5.1); SODIUM 136 mmol/L (136-145)
[2020-02-13] MEDS: INSULIN LISPRO 100 UNIT/1 ML 3ML VIAL SQ SCH ×5 (05:50→23:44)
[2020-02-13] MEDS: AMANTADINE HCL 50 MG/5 ML SOLUTION NG SCH (09:00)
[2020-02-13] MEDS: PANTOPRAZOLE 40 MG 10ML VIAL IV SCH (09:42)
[2020-02-13] MEDS: FUROSEMIDE INJ 10 MG/ML 2 ML VIAL IV SCH ×3 (09:42→23:32)
[2020-02-13] MEDS: LEVETIRACETAM 500MG/5ML VIAL 250 MG in SODIUM CHLORIDE 0.9% 100 ML 100 ML IV SCH ×2 (09:42→21:39)
[2020-02-13] MEDS: COLLAGENASE 5 GM TUBE TP SCH (09:43)
[2020-02-13] MEDS ORDERED: IOPAMIDOL 300MG/ML 50ML INFUS..BTL IV ONE (12:51)
[2020-02-13] MEDS ORDERED: B&O 60MG R/S 60 MG SUPP PR ONE (12:51)
[2020-02-13] MEDS: DEXTROSE 5%/0.45% SOD CHL 1,000 ML IV SCH (20:00)
[2020-02-13] MEDS: ATORVASTATIN 40 MG TAB PO SCH (23:30)
[2020-02-14] VITALS (22 sets, daily range): BP systolic 81–203; BP diastolic 54–84
[2020-02-14] MEDS: INSULIN LISPRO 100 UNIT/1 ML 3ML VIAL SQ SCH ×3 (06:00→18:23)
[2020-02-14] MEDS: FUROSEMIDE INJ 10 MG/ML 2 ML VIAL IV SCH ×3 (06:28→18:21)
[2020-02-14] MEDS: ALBUTEROL/IPRATROPIUM 3 ML NEB NEB SCH ×3 (07:10→19:30)
[2020-02-14 07:42] LABS: ALANINE AMINOTRANSFERASE 27 IU/L (0-55); ALKALINE PHOSPHATASE 121 IU/L (40-150); ANION GAP 14.3 mmol/L (8-16); BLOOD UREA NITROGEN 20 mg/dL (7-26); BUN/CREATININE RATIO 27 (6-25); CALCIUM 8.1 mg/dL (8.4-10.2); CARBON DIOXIDE 24 mmol/L (22-29); CHLORIDE 102 mmol/L (98-107); CREATININE, SERUM 0.74 mg/dL (0.57-1.11); EST GLOMERULAR FILTRATION RATE > 60 ML/MIN (60-); GLUCOSE 128 mg/dL (74-118); MAGNESIUM 1.3 MG/DL (1.3-2.1); POTASSIUM 3.3 mmol/L (3.5-5.1); SODIUM 137 mmol/L (136-145)
[2020-02-14 08:08] LABS: ALBUMIN/GLOBULIN RATIO 0.6 (0.8-2.0)
[2020-02-14] MEDS ORDERED: CLONIDINE HCL 0.2 MG/24 HR 1 EA PATCH TOP SCH (09:00)
[2020-02-14] MEDS: COLLAGENASE 5 GM TUBE TP SCH (09:38)
[2020-02-14] MEDS: PANTOPRAZOLE 40 MG 10ML VIAL IV SCH (09:38)
[2020-02-14] MEDS: AMANTADINE HCL 50 MG/5 ML SOLUTION NG SCH (09:41)
[2020-02-14] MEDS: LEVETIRACETAM 500MG/5ML VIAL 250 MG in SODIUM CHLORIDE 0.9% 100 ML 100 ML IV SCH ×2 (10:31→22:21)
[2020-02-14] MEDS ORDERED: POTASSIUM CHLORIDE 20MEQ/100ML 100 ML IV ONE (11:45)
[2020-02-14] MEDS: LINEZOLID 600 MG/D5W 300ML 300 ML IV SCH ×2 (12:28→23:03)
[2020-02-14] MEDS: ACETAMINOPHEN 650 MG SUPP PR PRN ×2 (14:18→14:29)
[2020-02-14] MEDS: DEXTROSE 5%/0.45% SOD CHL 1,000 ML IV SCH (15:49)
[2020-02-14] MEDS ORDERED: LEVETIRACETAM 500 MG/5 ML VIAL IV ONE (22:19)
[2020-02-14] MEDS: ATORVASTATIN 40 MG TAB PO SCH (22:21)
[2020-02-14] MEDS ORDERED: SODIUM CHLORIDE 0.9% 100 ML ONE (22:23)
[2020-02-15] VITALS (23 sets, daily range): BP systolic 93–162; BP diastolic 40–91
[2020-02-15] MEDS: FUROSEMIDE INJ 10 MG/ML 2 ML VIAL IV SCH ×3 (00:20→13:17)
[2020-02-15] MEDS: ALBUTEROL/IPRATROPIUM 3 ML NEB NEB SCH ×4 (02:50→20:25)
[2020-02-15 04:53] LABS: BASOPHILS % 0.4 % (0.0-1.0); EOSINOPHILS # (AUTO) 0.7 (0.0-0.4); EOSINOPHILS % 7.7 % (0.0-6.0); HEMATOCRIT 31.2 % (34.2-44.1); HEMOGLOBIN 10.1 g/dL (12.0-16.0); LYMPHOCYTES # (AUTO) 1.2 (1.0-3.2); LYMPHOCYTES % 12.6 % (18.0-39.1); MEAN CORPUSCULAR HEMOGLOBIN 28.6 pg (28-32); MEAN CORPUSCULAR HGB CONC 32.4 g/dL (31-35); MEAN CORPUSCULAR VOLUME 88.4 fL (81-99); MONOCYTES # (AUTO) 0.6 (0.2-0.8); MONOCYTES % 6.5 % (4.4-11.3); NEUTROPHILS # (AUTO) 6.7 (2.1-6.9); NEUTROPHILS % 72.5 % (38.7-80.0); PLATELET COUNT 213 x10e3/uL (140-360); RED BLOOD COUNT 3.53 x10e6/uL (3.6-5.1); RED CELL DISTRIBUTION WIDTH 15.7 % (11.7-14.4)
[2020-02-15 05:13] LABS: ANION GAP 14.1 mmol/L (8-16); BLOOD UREA NITROGEN 18 mg/dL (7-26); BUN/CREATININE RATIO 25 (6-25); CALCIUM 7.8 mg/dL (8.4-10.2); CARBON DIOXIDE 26 mmol/L (22-29); CHLORIDE 98 mmol/L (98-107); CREATININE, SERUM 0.73 mg/dL (0.57-1.11); EST GLOMERULAR FILTRATION RATE > 60 ML/MIN (60-); GLUCOSE 148 mg/dL (74-118); POTASSIUM 3.1 mmol/L (3.5-5.1); SODIUM 135 mmol/L (136-145)
[2020-02-15] MEDS: INSULIN LISPRO 100 UNIT/1 ML 3ML VIAL SQ SCH ×4 (06:00→17:19)
[2020-02-15] MEDS: AMANTADINE HCL 50 MG/5 ML SOLUTION NG SCH (09:00)
[2020-02-15] MEDS: LEVETIRACETAM 500MG/5ML VIAL 250 MG in SODIUM CHLORIDE 0.9% 100 ML 100 ML IV SCH ×2 (09:01→21:45)
[2020-02-15] MEDS: COLLAGENASE 5 GM TUBE TP SCH (09:01)
[2020-02-15] MEDS: PANTOPRAZOLE 40 MG 10ML VIAL IV SCH (09:01)
[2020-02-15] MEDS ORDERED: IOPAMIDOL 300MG/ML 50ML INFUS..BTL IV ONE (09:12)
[2020-02-15] MEDS ORDERED: B&O 60MG R/S 60 MG SUPP PR ONE (09:12)
[2020-02-15] MEDS ORDERED: LIDOCAINE 2%/ EPINEPHRINE 20ML MDV ONE (09:44)
[2020-02-15] MEDS ORDERED: BUPIVACAINE HCL 0.5% INJ 30 ML VIAL INJ ONE (09:44)
[2020-02-15] MEDS ORDERED: POTASSIUM CHLORIDE 20MEQ/100ML 100 ML IV ONE ×2 (09:45→15:00)
[2020-02-15] MEDS: LINEZOLID 600 MG/D5W 300ML 300 ML IV SCH ×2 (10:22→23:58)
[2020-02-15] MEDS ORDERED: SEVOFLURANE INHAL SOLN 250 ML PEN BTL ONE (13:08)
[2020-02-15] MEDS: DEXTROSE 5%/0.45% SOD CHL 1,000 ML IV SCH (13:17)
[2020-02-15] MEDS ORDERED: FENTANYL CITRATE/PF 100MCG/2 ML INJ ONE (14:34)
[2020-02-15] MEDS: OXYBUTYNIN CHLORIDE 5 MG TAB GT SCH ×2 (14:56→21:45)
[2020-02-15] MEDS: FUROSEMIDE INJ 100 MG in SODIUM CHLORIDE 0.9% 100 ML 90 ML IV SCH (16:11)
[2020-02-15] MEDS ORDERED: SODIUM CHLORIDE 0.9% 100 ML ONE (21:21)
[2020-02-15] MEDS: ATORVASTATIN 40 MG TAB PO SCH (21:45)
[2020-02-16] VITALS (17 sets, daily range): BP systolic 91–132; BP diastolic 39–61
[2020-02-16] MEDS: INSULIN LISPRO 100 UNIT/1 ML 3ML VIAL SQ SCH ×3 (00:10→12:30)
[2020-02-16] MEDS: ALBUTEROL/IPRATROPIUM 3 ML NEB NEB SCH ×3 (01:20→13:45)
[2020-02-16] MEDS: FUROSEMIDE INJ 100 MG in SODIUM CHLORIDE 0.9% 100 ML 90 ML IV SCH (04:30)
[2020-02-16 06:00] LABS: BASOPHILS % 0.4 % (0.0-1.0); EOSINOPHILS % 10.7 % (0.0-6.0); HEMATOCRIT 32.4 % (34.2-44.1); HEMOGLOBIN 10.5 g/dL (12.0-16.0); LYMPHOCYTES # (AUTO) 1.3 (1.0-3.2); LYMPHOCYTES % 13.8 % (18.0-39.1); MEAN CORPUSCULAR HEMOGLOBIN 29.6 pg (28-32); MEAN CORPUSCULAR HGB CONC 32.4 g/dL (31-35); MEAN CORPUSCULAR VOLUME 91.3 fL (81-99); MONOCYTES # (AUTO) 0.6 (0.2-0.8); MONOCYTES % 6.6 % (4.4-11.3); NEUTROPHILS # (AUTO) 6.6 (2.1-6.9); NEUTROPHILS % 68.3 % (38.7-80.0); PLATELET COUNT 242 x10e3/uL (140-360); RED BLOOD COUNT 3.55 x10e6/uL (3.6-5.1); RED CELL DISTRIBUTION WIDTH 15.8 % (11.7-14.4)
[2020-02-16 06:10] LABS: ANION GAP 14.8 mmol/L (8-16); BLOOD UREA NITROGEN 20 mg/dL (7-26); BUN/CREATININE RATIO 26 (6-25); CALCIUM 7.9 mg/dL (8.4-10.2); CARBON DIOXIDE 27 mmol/L (22-29); CHLORIDE 98 mmol/L (98-107); CREATININE, SERUM 0.76 mg/dL (0.57-1.11); EST GLOMERULAR FILTRATION RATE > 60 ML/MIN (60-); GLUCOSE 152 mg/dL (74-118); POTASSIUM 3.8 mmol/L (3.5-5.1); SODIUM 136 mmol/L (136-145)
[2020-02-16 06:30] LABS: MAGNESIUM 1.2 MG/DL (1.3-2.1); PHOSPHORUS 3.5 MG/DL (2.3-4.7)
[2020-02-16] MEDS: LEVETIRACETAM 500MG/5ML VIAL 250 MG in SODIUM CHLORIDE 0.9% 100 ML 100 ML IV SCH (08:50)
[2020-02-16] MEDS: COLLAGENASE 5 GM TUBE TP SCH (08:50)
[2020-02-16] MEDS: OXYBUTYNIN CHLORIDE 5 MG TAB GT SCH ×2 (08:50→15:50)
[2020-02-16] MEDS: PANTOPRAZOLE 40 MG 10ML VIAL IV SCH (08:50)
[2020-02-16] MEDS ORDERED: ALTEPLASE RECOMBINANT 2 MG/2 ML VIAL IV PRN (09:00)
[2020-02-16] MEDS: AMANTADINE HCL 50 MG/5 ML SOLUTION NG SCH (09:43)
[2020-02-16] MEDS: LINEZOLID 600 MG/D5W 300ML 300 ML IV SCH (10:36)
[2020-02-16] MEDS ORDERED: MAGNESIUM SULFATE 2GM/50ML 50 ML IV ONE (11:45)
[2020-02-16] MEDS ORDERED: FUROSEMIDE40 MG PO (14:19)
[2020-02-16] MEDS ORDERED: ZYVOX600 MG/300 IV (14:19)
[2020-02-16] MEDS ORDERED: OXYBUTYNIN CHLOR5 MG GT (14:19)
[2020-02-16] MEDS ORDERED: FUROSEMIDE 40 MG TAB PO SCH (18:00)
== END 2020-02-16 16:44 | DRG 659 ==
LOC: ER 17:08 → ERHOLD 20:57 → ICU 22:54
PROVIDERS: ADMIT Internal Medicine; ATTEND Internal Medicine
PROC: 5A1955Z Respiratory Ventilation, Greater than 96 Consecutive Hours (ICD-10-PCS; 2020-01-31)
PROC: 0T9030Z Drainage of Right Kidney with Drainage Device, Percutaneous Approach (ICD-10-PCS; 2020-02-01)
PROC: 0TCB8ZZ Extirpation of Matter from Bladder, Via Natural or Artificial Opening Endoscopic (ICD-10-PCS; 2020-02-15)
PROC: BT141ZZ Fluoroscopy of Kidneys, Ureters and Bladder using Low Osmolar Contrast (ICD-10-PCS; 2020-02-15)
PROC: 0T768DZ Dilation of Right Ureter with Intraluminal Device, Via Natural or Artificial Opening Endoscopic (ICD-10-PCS; principal; 2020-02-15 09:27)
DX: T83.511A Infection and inflammatory reaction due to indwelling urethral catheter, initial encounter (principal); A41.9 Sepsis, unspecified organism; J96.20 Acute and chronic respiratory failure, unspecified whether with hypoxia or hypercapnia; R53.2 Functional quadriplegia; R65.20 Severe sepsis without septic shock; N17.9 Acute kidney failure, unspecified; N13.6 Pyonephrosis; R40.3 Persistent vegetative state; N20.1 Calculus of ureter; Z16.22 Resistance to vancomycin related antibiotics; N39.0 Urinary tract infection, site not specified; Z99.81 Dependence on supplemental oxygen; R13.10 Dysphagia, unspecified; Z93.0 Tracheostomy status; I12.9 Hypertensive chronic kidney disease with stage 1 through stage 4 chronic kidney disease, or unspecified chronic kidney disease; N18.9 Chronic kidney disease, unspecified; D64.9 Anemia, unspecified; Z93.1 Gastrostomy status; Z88.0 Allergy status to penicillin; Z88.2 Allergy status to sulfonamides; Z91.02 Food additives allergy status; Z87.442 Personal history of urinary calculi; K59.00 Constipation, unspecified; G40.909 Epilepsy, unspecified, not intractable, without status epilepticus; N95.2 Postmenopausal atrophic vaginitis; N81.6 Rectocele; N81.10 Cystocele, unspecified; N36.8 Other specified disorders of urethra; N21.0 Calculus in bladder; B95.2 Enterococcus as the cause of diseases classified elsewhere
CPT/HCPCS: 36415; 36569; 36584; 36600; 50430; 51700; 71045; 71250; 74018; 74176; 74420; 74470; 76942; 80048; 80053; 80076; 80202; 81001; 82150; 82542; 82805; 82948; 83540; 83605; 83690; 83735; 84100; 84466; 85025; 85610; 85730; 86850; 86900; 86920; 87040; 87070; 87071; 87086; 87186; 87205; 88300; 93306; 94002; 94003; 94640; 96372; 99251; 99284; C1729; C1758; C1766; C1769; C2617; J0360; J0692; J1644; J1940; J2001; J2020; J2250; J2405; J2997; J3010; J3260; J3475; J3480; J7030; J7042; J7050; J7121; P9016; Q9967; U0002